=== PATIENT | female | born 1985 | race Caucasian/White ===

== ENCOUNTER 2018-12-23 05:35 | Inpatient (IN) | payer OTHER ==
[2018-12-22 13:49] LABS: BASOPHILS ABSOLUTE AUTO 0.02 K/mm3 (0.00-0.23); BASOPHILS PERCENT AUTO 0 % (0-2); EOSINOPHILS PERCENT AUTO 1 % (0-6); Hematocrit 37.1 % (33.0-51.0); Hemoglobin 12.3 g/dL (11.5-16.0); IMMATURE GRAN ABSOLUTE AUTO 0.02 K/mm3 (0.00-0.10); IMMATURE GRAN PERCENT AUTO 0 % (0-1); LYMPHOCYTES ABSOLUTE AUTO 2.89 K/mm3 (0.84-5.20); LYMPHOCYTES PERCENT AUTO 35 % (21-46); MONOCYTES ABSOLUTE AUTO 0.64 K/mm3 (0.16-1.47); MONOCYTES PERCENT AUTO 8 % (4-13); Mean Corpuscular HGB 30.7 pg (26.0-34.0); Mean Corpuscular HGB Conc 33.2 g/dL (31.5-36.5); Mean Corpuscular Volume 93 fL (80-100); Mean Platelet Volume 9.7 fL (9.1-12.4); NEUTROPHILS ABSOLUTE AUTO 4.67 K/mm3 (1.96-9.15); NEUTROPHILS PERCENT AUTO 56 % (41-73); Platelet Count 259 K/mm3 (150-400); RDW Coefficient Variation 14.3 % (11.7-14.2); Red Blood Cell Count 4.01 M/mm3 (3.80-5.20); White Blood Cell Count 8.34 K/mm3 (4.00-11.30)
[~2018-12-23] VITALS: Ht 167.6 cm; Wt 123.3 kg
[~2018-12-23 05:35] MED LIST: ACET325 PO; CYCL10 PO; LIDO700A20 TOP; Norco 5-325 Ta1 EACH PO; Verotin-Gr Cap1 EACH PO
--- NOTE | 2018-12-23 08:37 | NUR ---
12/23/18 0837 Barby Valera 0821 DELIVERY LIVE MALE APGARS 9/9 WEIGHT [id number] 7# 7OZ HEAD 13.75 INCHEST, CHEST 13.75 INCHES, LENGTH 20.5 INCHES, UMBILICAL CORD SEGMENT COLLECTED AND SENT WITH RT FOR CORD GASES, UMBILICAL CORD BLOOD COLLECTED AND GIVEN TO Teo QUAN RN, RIGHT AND LEFT FALLOPIAN TUBES COLLECTED SEPARATELY, LABELED AND SENT TO PATHOLOGY.
[2018-12-23 08:39] LABS: PO2 Cord - Venous 25.8 mmHg (28-32); pH Umbilical Cord - Venous 7.39 (7.26-7.35)
[2018-12-23 08:40] LABS: PCO2 Cord - Arterial 51.3 mmHg (40-50); PO2 Cord - Arterial 15.2 mmHg (16-20); pH Cord - Arterial 7.34 (7.28-7.35)
--- NOTE | 2018-12-23 13:06 | NUR ---
ASSUMED CARE. PT IN BED, HOLDING INFANT. IV SALINE LOCKED. NO COMPLAINTS.
--- NOTE | 2018-12-23 14:04 | NUR ---
ORTIZ CARE DONE
--- NOTE | 2018-12-24 00:06 | NUR ---
UP TO SHOWER PT OOB TO SHOWER. PT TOLERATED WELL NO S/S OF DISTRESS. PT SHOWERED, DRESSED, AND DRESSING TAKEN OFF. PT TOLERATED WELL. NEW LINENES ON BED. PT BACK TO BED TOLERATED WELL. PT OK TO HAVE BATHROOM PRIVELAGES. PT DENIES ANY OTHER NEEDS AT THIS TIME.
[2018-12-24 06:12] LABS: BASOPHILS ABSOLUTE AUTO 0.02 K/mm3 (0.00-0.23); BASOPHILS PERCENT AUTO 0 % (0-2); EOSINOPHILS ABSOLUTE AUTO 0.07 K/mm3 (0.00-0.68); EOSINOPHILS PERCENT AUTO 1 % (0-6); Hematocrit 35.9 % (33.0-51.0); Hemoglobin 11.6 g/dL (11.5-16.0); IMMATURE GRAN ABSOLUTE AUTO 0.02 K/mm3 (0.00-0.10); IMMATURE GRAN PERCENT AUTO 0 % (0-1); LYMPHOCYTES ABSOLUTE AUTO 2.12 K/mm3 (0.84-5.20); LYMPHOCYTES PERCENT AUTO 24 % (21-46); MONOCYTES PERCENT AUTO 10 % (4-13); Mean Corpuscular HGB 30.3 pg (26.0-34.0); Mean Corpuscular HGB Conc 32.3 g/dL (31.5-36.5); Mean Corpuscular Volume 94 fL (80-100); Mean Platelet Volume 9.2 fL (9.1-12.4); NEUTROPHILS ABSOLUTE AUTO 5.77 K/mm3 (1.96-9.15); NEUTROPHILS PERCENT AUTO 65 % (41-73); Platelet Count 221 K/mm3 (150-400); RDW Coefficient Variation 14.4 % (11.7-14.2); RDW Standard Deviation 48.9 fL (35.1-46.3); Red Blood Cell Count 3.83 M/mm3 (3.80-5.20)
[2018-12-25] MEDS ORDERED: Percocet 5-3251 EACH (09:26)
[2018-12-25] MEDS ORDERED: IBUP800 PO (09:26)
--- NOTE | 2018-12-25 09:56 | NUR ---
DISCARGE INSTRUCTIONS SIGNED. ALL QUESTIONS ANSWERED.
--- NOTE | 2018-12-25 10:03 | NUR ---
BANDS MATCHED. PT DISCHARGED TO HOME
== END 2018-12-25 10:15 | disposition home or self-care (01) | DRG 785 ==
LOC: BC 05:35
PROVIDERS: ADMIT Obstetrics & Gynecology
PROC: 10D00Z1 Extraction of Products of Conception, Low, Open Approach (ICD-10-PCS; principal; 2018-12-23 07:30)
PROC: 0UT70ZZ Resection of Bilateral Fallopian Tubes, Open Approach (ICD-10-PCS; 2018-12-23 07:30)
DX: O13.4 Gestational [pregnancy-induced] hypertension without significant proteinuria, complicating childbirth (principal); Z3A.39 39 weeks gestation of pregnancy; Z37.0 Single live birth; O34.211 Maternal care for low transverse scar from previous cesarean delivery; Z88.2 Allergy status to sulfonamides
CPT/HCPCS: 36415; 82803; 85025; 86850; 86900; 86901; 88302; J0690; J1885; J2765; J3010; J7120

== ENCOUNTER 2020-08-25 21:04 | Emergency (ER) | payer OTHER ==
[~2020-08-25] VITALS: Ht 167.6 cm; Wt 122.5 kg
[~2020-08-25 21:04] MED LIST changes: +IBUP800 PO; +Percocet 5-3251 EACH
[2020-08-25 21:43] LABS: BASOPHILS ABSOLUTE AUTO 0.07 K/mm3 (0.00-0.23); BASOPHILS PERCENT AUTO 1 % (0-2); EOSINOPHILS ABSOLUTE AUTO 0.34 K/mm3 (0.00-0.68); EOSINOPHILS PERCENT AUTO 3 % (0-6); Hematocrit 39.1 % (33.0-51.0); Hemoglobin 12.7 g/dL (11.5-16.0); IMMATURE GRAN ABSOLUTE AUTO 0.02 K/mm3 (0.00-0.10); IMMATURE GRAN PERCENT AUTO 0 % (0-1); LYMPHOCYTES ABSOLUTE AUTO 4.48 K/mm3 (0.84-5.20); LYMPHOCYTES PERCENT AUTO 38 % (21-46); MONOCYTES PERCENT AUTO 8 % (4-13); Mean Corpuscular HGB 27.9 pg (26.0-34.0); Mean Corpuscular HGB Conc 32.5 g/dL (31.5-36.5); Mean Corpuscular Volume 86 fL (80-100); NEUTROPHILS ABSOLUTE AUTO 5.94 K/mm3 (1.96-9.15); NEUTROPHILS PERCENT AUTO 51 % (41-73); Platelet Count 410 K/mm3 (150-400); RDW Standard Deviation 43.1 fL (35.1-46.3); Red Blood Cell Count 4.56 M/mm3 (3.80-5.20); White Blood Cell Count 11.75 K/mm3 (4.00-11.30)
[2020-08-25 22:03] LABS: Alanine Aminotransfer (ALT/SGP 27 U/L (12-78); Albumin, Blood 3.3 g/dL (3.4-5.0); Albumin/Globulin Ratio 0.7 (0.8-1.8); Alk Phos 88 U/L (50-136); Anion Gap 4 mmol/L (6-16); Aspartate Aminotrans (AST/SGOT 31 U/L (12-37); Bilirubin, Total 0.6 mg/dL (0.1-1.0); Blood Urea Nitrogen 12 mg/dL (8-24); CO2, Blood 25 mmol/L (21-32); Calcium, Blood 9.1 mg/dL (8.5-10.1); Chloride, Blood 108 mmol/L (98-108); Creatinine, Blood 0.67 mg/dL (0.40-1.00); Glomerular Filtration Rate >60 (60-); Glucose, Blood 84 mg/dL (70-99); Potassium, Blood 4.3 mmol/L (3.5-5.5); Sodium, Blood 137 mmol/L (136-145); Total Protein, Blood 8.3 g/dL (6.4-8.2); Troponin I <0.015 ng/mL (0.000-0.040)
== END 2020-08-26 | disposition home or self-care (01) ==
LOC: ER 21:04
PROVIDERS: Physician Assistant
DX: K21.9 Gastro-esophageal reflux disease without esophagitis (principal); Z88.2 Allergy status to sulfonamides; Z87.891 Personal history of nicotine dependence
CPT/HCPCS: 36415; 71046; 80053; 84484; 85025; 93005; 93010; 96374; 99285-25; J1885